=== PATIENT | male | born 1990 | race Caucasian/White ===

== ENCOUNTER 2020-01-01 16:51 | Emergency (ER) | payer MEDICAID ==
[~2020-01-01] VITALS: Ht 182.9 cm; Wt 70.3 kg
[2020-01-01 16:53] VITALS: BP 151/87
[2020-01-01] MEDS ORDERED: KETOROLAC 60 MG/2 ML VIAL IM ONE (17:10)
--- NOTE | 2020-01-01 17:10 | NUR ---
29 Y/O M C/C BILATERAL TESTICLE PAIN RADIATING TO GROIN AREA, 8/10 PAIN, SHARP SENSATION X 1 MONTH. PER PT PROGRESSIVELY WORSE. DENIES ERYTHEMA,SWELLING,RECENT SEXUAL INTERCOURSE. PT NKA. NO HX. NO RX. NO NVD. SIDE RAIL X1.
[2020-01-01] MEDS ORDERED: AZITHROMYCIN 250 MG TAB PO ONE (17:50)
[2020-01-01] MEDS ORDERED: cefTRIAXone 250 MG in LIDOCAINE MPF 1% 0.9 ML IM ONE (17:50)
[2020-01-01] MEDS ORDERED: MORPHINE SULFATE 4 MG/ML SYR IM ONE (17:50)
[2020-01-01] MEDS ORDERED: LIDOCAINE MPF 1% 5 ML ONE (17:53)
[2020-01-01] MEDS ORDERED: cefTRIAXone 250 MG VIAL ONE (17:53)
[2020-01-01 18:08] VITALS: BP 151/87
== END 2020-01-01 18:09 | disposition home or self-care (01) ==
LOC: MED 16:51
DX: R10.32 Left lower quadrant pain (principal); R39.15 Urgency of urination; M54.5 Low back pain; F17.200 Nicotine dependence, unspecified, uncomplicated
CPT/HCPCS: 36415; 81002; 87086; 96372; 99284; J0696; J1885; J2001; J2270

== ENCOUNTER 2020-01-13 21:16 | Emergency (ER) | payer MEDICAID ==
[~2020-01-13] VITALS: Ht 185.4 cm; Wt 76.2 kg
[2020-01-13 21:27] VITALS: BP 134/82
--- NOTE | 2020-01-13 21:30 | NUR ---
PT AMBULATED TO [facility], STEADY GAIT.
--- NOTE | 2020-01-13 21:32 | NUR ---
29 Y/O MALE C/O GROIN PAIN 05/17. WAS SEEN AT [facility] JAN 01, 2020. PRESCRIBED NAPROSYN. PT REQUESTING FOR PAIN MED REFILL. STATES HE RAN OUT OF MEDS. MEDHX: JENIFER HOWE RX: NAPROSYN [id number]
--- NOTE | 2020-01-13 22:09 | NUR ---
Dr. Caraballo examining patient.
--- NOTE | 2020-01-13 22:29 | NUR ---
PT MOVED TO ER BED 7
--- NOTE | 2020-01-13 22:34 | NUR ---
Ultrasound at bedside.
[2020-01-14] VITALS: BP 134/82
== END 2020-01-14 | disposition home or self-care (01) ==
LOC: MED 21:16
DX: N50.3 Cyst of epididymis (principal); N44.00 Torsion of testis, unspecified
CPT/HCPCS: 76870; 99284; Q0092

== ENCOUNTER 2020-01-23 21:58 | Emergency (ER) | payer MEDICAID ==
[~2020-01-23] VITALS: Ht 182.9 cm; Wt 70.3 kg
[2020-01-23] MEDS ORDERED: KETOROLAC 60 MG/2 ML VIAL IM ONE (22:05)
[2020-01-23 22:06] VITALS: BP 147/94
--- NOTE | 2020-01-23 22:09 | NUR ---
To ED bed 07
--- NOTE | 2020-01-23 22:10 | NUR ---
Lucas matias in ED - 01/23/20 at 2210 by MOISE PT TAKEN TO [facility] 7
--- NOTE | 2020-01-23 22:12 | NUR ---
Ultrasound at bedside.
--- NOTE | 2020-01-23 22:37 | NUR ---
29 YO M BIB SELF FOR C/C OF 710 TESTICULAR PAIN AND SWELLING X3 DAYS THAT INCREASES WITH MOVEMENT. PT DENIES URINARY SYMPTOMS, DENIES TESTICULAR NODULES, STATES HIS MID LOWER ABDOMEN ALSO HURTS. DENIES N/V/D, FEVER, CHILLS, COUGH, AND SOB. PT TOOK NAPROSYN FOR PAIN AT 2030 WITH NO RELIEF OF SYMPTOMS. BED LOCKED AND IN LOWEST POSITION. SIDE RAILS X1. MED HX: DENIES NO RX NKA
[2020-01-23] MEDS ORDERED: MORPHINE SULFATE 4 MG/ML SYR IM ONE (23:00)
--- NOTE | 2020-01-23 23:00 | NUR ---
PT RESTLESS IN PAIN STATES HE NEEDS MORE PAIN CONTROL POST IM TORODOL. ZAIRA MADE AWARE.
--- NOTE | 2020-01-23 23:11 | NUR ---
PT PLACED ON PULSE OX BEFORE IM MORPHINE ADMIN
--- NOTE | 2020-01-23 23:18 | NUR ---
Dr. Armando examining patient.
[2020-01-23 23:27] VITALS: BP 147/94
== END 2020-01-23 23:27 | disposition home or self-care (01) ==
LOC: MED 21:58
DX: N50.811 Right testicular pain (principal); N50.812 Left testicular pain; N50.3 Cyst of epididymis; F17.200 Nicotine dependence, unspecified, uncomplicated; F12.90 Cannabis use, unspecified, uncomplicated
CPT/HCPCS: 76870; 81002; 96372; 99284; J1885; J2270; Q0092

== ENCOUNTER 2020-02-07 00:04 | Emergency (ER) | payer MEDICAID ==
[~2020-02-07] VITALS: Ht 182.9 cm; Wt 73.5 kg
[2020-02-07 00:18] VITALS: BP 117/84
--- NOTE | 2020-02-07 00:18 | NUR ---
PT STATES THAT HE CAME TO THIS ER "A WEEK OR TWO AGO" AND C/O TESTICULAR PAIN. STATES THAT US WAS PERFORMED WHICH REVEALED A CYST AND HE WAS GIVEN A PRESCRIPTION FOR PAIN MEDS AND TOLD TO FOLLOW UP WITH PRIMARY. HES NOW WAITING FOR APPOINTMENT ANS IS HERE TODAY TO REQUEST ADDITIONAL PAIN MEDS, JAIDEN. PMH: JENIFER HOWE
--- NOTE | 2020-02-07 00:23 | NUR ---
PT TAKEN TO BED 2
[2020-02-07 02:02] VITALS: BP 120/77
== END 2020-02-07 02:02 | disposition home or self-care (01) ==
LOC: MED 00:04
DX: N50.82 Scrotal pain (principal); F17.210 Nicotine dependence, cigarettes, uncomplicated
CPT/HCPCS: 99282